=== PATIENT | female | born 1995 | race Caucasian/White ===

== ENCOUNTER 2016-11-28 08:09 | Day surgery (SDC) | payer OTHER ==
[~2016-11-28 08:09] MED LIST: RINGERS SOLUTION,LACTATED 1,000 ML IV PRN
[2016-11-28] MEDS ORDERED: RINGERS SOLUTION,LACTATED 1,000 ML IV ONE ×2 (09:00→10:00)
[2016-11-28] MEDS ORDERED: LIDOCAINE HCL/EPINEPHRINE 50 ML VIAL IJ ONE ×2 (09:35)
--- NOTE | 2016-11-28 10:13 | OR ---
Operative Report - Dictated Report Narrative: DATE OF PROCEDURE: 11/28/2016 INDICATION: 21 year old female desires permanent sterilization by removal of both fallopian tubes PREOPERATIVE DIAGNOSIS: Multiparity, desires permanent sterilization POSTOPERATIVE DIAGNOSIS: Multiparity, desires permanent sterilization OPERATION: Laparoscopic bilateral salpingectomy SURGEON: Juan Rios D.O. LEAD GENERATOR: None ANESTHESIA: General ESTIMATED BLOOD LOSS: Minimal FLUID REPLACEMENT: 900 mL URINE OUTPUT: Not measured FINDINGS: Normal uterus, tubes, and ovaries. Normal-appearing appendix and pelvis. SPECIMEN(S): Fallopian tubes DRAINS: none TECHNIQUE: The patient was taken to the operating room and placed in dorsal lithotomy position after adequate general anesthesia was obtained. The anterior lip of the cervix was grasped with a long Allis clamp and a uterine manipulator was inserted into the cervical canal and attached to the Allis clamps as a means to manipulate the uterus. Bladder was drained prior to patient entering the OR. Gloves were changed and attention was turned to the abdomen where the umbilicus and suprapubic region were injected with a 1% lidocaine epinephrine was solution. A scalpel was used to score the skin and a 5 mm non-bladed trocar was inserted via direct technique under direct visualization. Pneumoperitoneum was created with CO2 gas. An 8 mm non-bladed trocar was inserted suprapubically and a 5 mm non-bladed trocar was inserted in the left lower quadrant under direct visualization. Through these 3 ports the surgery was carried out with findings as noted above. The right fallopian tube was identified and followed out to the fimbriated end. The fallopian tube was coagulated with the Kleppinger's approximately 2 cm from the cornual region and along the mesosalpinx. The tube was then excised with laparoscopic scissors and removed through the 12 mm port. The exact same was done on the patient's left side. The CO2 gas was removed from the abdominal cavity. Trochars were removed under direct visualization. The skin of all incisions was closed with 4- 0 Monocryl. Dermabond was applied to all incisions. Instruments were removed from the cervix and vagina. Sponge, lap, instrument, and needle count were correct x 2. DISPOSITION: The patient was awakened and transferred to post anesthesia care unit in good condition.
[2016-11-28] MEDS ORDERED: MORPHINE SULFATE 2 MG/ML DISP.SYRIN IV PRN (10:19)
[2016-11-28] MEDS ORDERED: oxyCODONE HCL/ACETAMINOPHEN 1 TAB TABLET PO PRN (10:20)
[2016-11-28] MEDS ORDERED: IBUPROFEN 800 MG TABLET PO PRN (11:16)
[2016-11-28 12:16] VITALS: BP 100/60
== END 2016-11-28 08:10 | disposition home or self-care (01) ==
LOC: AMB 08:09
PROVIDERS: ATTEND Obstetrics & Gynecology
PROC: 0UT74ZZ Resection of Bilateral Fallopian Tubes, Percutaneous Endoscopic Approach (ICD-10-PCS; principal; 2016-11-28 09:45)
DX: Z30.2 Encounter for sterilization (principal); Z68.29 Body mass index [BMI] 29.0-29.9, adult

== ENCOUNTER 2017-01-02 10:16 | Emergency (ER) | payer OTHER ==
[2017-01-02] MEDS ORDERED: KETOROLAC TROMETHAMINE 60 MG/2 ML VIAL IM ONE ×2 (10:46→10:49)
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
[2017-01-02 12:07] VITALS: BP 120/77
== END 2017-01-02 12:16 | disposition home or self-care (01) ==
LOC: ER 10:16
DX: S93.602A Unspecified sprain of left foot, initial encounter (principal); W01.0XXA Fall on same level from slipping, tripping and stumbling without subsequent striking against object, initial encounter; Y93.01 Activity, walking, marching and hiking; Y92.009 Unspecified place in unspecified non-institutional (private) residence as the place of occurrence of the external cause

== ENCOUNTER 2017-03-27 18:35 | Emergency (ER) | payer OTHER ==
[2017-03-27] MEDS ORDERED: ONDANSETRON HCL/PF 2 MG/ML VIAL IV ONE (19:00)
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
[2017-03-27 19:11] LABS: Urine Bilirubin Negative (NEGATIVE); Urine Blood 25 /ul (NEGATIVE); Urine Ketone Negative (NEGATIVE); Urine Nitrite Negative (NEGATIVE); Urine Protein 30 mg/dL (NEGATIVE); Urine Urobilinogen Normal (NORMAL)
[2017-03-27] MEDS ORDERED: KETOROLAC TROMETHAMINE 30 MG/ML VIAL IV ONE (19:12)
[2017-03-27] MEDS ORDERED: NORMAL SALINE 1,000 ML IV ONE (19:12)
[2017-03-27] MEDS ORDERED: KETOROLAC TROMETHAMINE 30 MG/ML VIAL ONE (19:14)
[2017-03-27 19:19] LABS: Hematocrit 38.5 % (37.0-47.0); Hemoglobin 13.2 gm/dL (12.5-16.0); Mean Cell Volume 81.6 fl (78-100); Mean Corpuscular Hgb Conc 34.3 g/dl (32-36); Neutrophil # 13.1 K/mm3 (1.3-6.0); Neutrophil % 84.7 % (42-75.0); Platelet Count 220 K/mm3 (150-450); Red Blood Count 4.72 M/mm3 (4.2-5.4); White Blood Count 15.5 K/mm3 (4.0-10.5)
[2017-03-27 19:34] LABS: Albumin * 3.5 gm/dl (3.4-5.0); Anion Gap 15.8 mmol/L (6.8-13.8); BUN/Creatinine Ratio 7.6 (9.0-21.6); Bilirubin, Total 0.4 mg/dL (0.0-1.1); Ca. Corrected For Albumin 9.1 mg/dL (8.4-10.2); Carbon Dioxide 24.7 mmol/L (24-32.6); Potassium 3.5 mmol/L (3.4-4.6); Total Protein 8.2 gm/dL (6.2-8.2)
[2017-03-27 19:34] LABS: Urine Appearance Cloudy; Urine Bacteria 3+; Urine Coarse Granular Cast TRACE /LPF; Urine Color Yellow; Urine RBC None Seen /hpf (0-5)
[2017-03-27 22:58] VITALS: BP 110/71
== END 2017-03-27 21:13 | disposition home or self-care (01) ==
LOC: ER 18:35
DX: N12 Tubulo-interstitial nephritis, not specified as acute or chronic (principal)